=== PATIENT | male | born 1965 | race Caucasian/White ===

== ENCOUNTER 2019-04-21 15:13 | Outpatient (CLI) | payer BC ==
[~2019-04-21] VITALS: Ht 180.3 cm; Wt 75.9 kg
[~2019-04-21 15:13] MED LIST: AMLO5TAB9 PO; OLME20TA24 PO
== END 2019-04-21 16:11 | disposition home or self-care (01) ==
LOC: PREOP 15:13
PROVIDERS: ATTEND Surgery
DX: Z01.818 Encounter for other preprocedural examination (principal)

== ENCOUNTER 2019-04-27 09:50 | Day surgery (SDC) | payer BC ==
[~2019-04-27] VITALS: Ht 180.3 cm; Wt 75.9 kg
[2019-04-27] VITALS (8 sets, daily range): BP systolic 119–154; BP diastolic 66–89
[2019-04-27] MEDS ORDERED: LACTATED RINGERS 1,000 ML IV ONE (09:51)
[2019-04-27] MEDS ORDERED: LACTATED RINGERS 1,000 ML IV PRN (10:15)
[2019-04-27] MEDS ORDERED: PROPOFOL INJECTION 50 ML IV ONE (10:18)
[2019-04-27] MEDS ORDERED: MIDAZOLAM 2 MG/2 ML (VERSED) VIAL ONE (10:19)
--- NOTE | 2019-04-27 11:25 | Progress Note-Pre Operative ---
Pre-Operative Progress Note H&P Reviewed The H&P was reviewed, patient examined and no changes noted. Date Seen by Provider: Apr 27, 2019 Time Seen by Provider: 11: Date H&P Reviewed: Apr 27, 2019 Time H&P Reviewed: 11:25 Pre-Operative Diagnosis: screening colonoscopy SENAIT SIEGEL DO Apr 27, 2019 11:25
--- NOTE | 2019-04-27 11:45 | Progress Note-Post Operative ---
Post-Operative Progess Note Surgeon (s)/Primary Teacher (s) Surgeon SENAIT SIEGEL DO Primary Teacher: NA Pre-Operative Diagnosis screening colonoscopy Post-Operative Diagnosis Diverticulosis Procedure & Operative Findings Date of Procedure 04/27/19 Procedure Performed/Findings Diverticulosis Anesthesia Type per DYER ASSISTANT Estimated Blood Loss Estimated blood loss (mL): None Specimens/Packing Specimens Removed None SENAIT SIEGEL DO Apr 27, 2019 11:45
--- NOTE | 2019-04-27 11:47 | Discharge Inst-Simple/Standard ---
Discharge Inst-Standard Patient Instructions/Follow Up Plan of Care/Instructions/FU: Follow up in ten years for repeat colonoscopy, unless family history of colon cancer or personal history of polyps, which would be five years. Any issues before that be seen at that time. Activity as Tolerated: Yes Discharge Diet: Regular Diet (High Fiber) SENAIT SIEGEL DO Apr 27, 2019 11:47
--- NOTE | 2019-04-27 12:24 | Anesthesia-General Post-Op ---
MAC Patient Condition Mental Status/LOC: Same as Preop Cardiovascular: Satisfactory Nausea/Vomiting: Absent Respiratory: Satisfactory Pain: Controlled Complications: Absent Post Op Complications Complications None Follow Up Care/Instructions Patient Instructions None needed. Anesthesiology Discharge Order Discharge Order Patient is doing well, no complaints, stable vital signs, no apparent adverse anesthesia problems. No complications reported per nursing. ZANE LOTT CRNA Apr 27, 2019 12:06
--- NOTE | 2019-04-27 15:28 | OPERATIVE REPORT ---
DATE OF SERVICE: 04/27/2019 PREOPERATIVE DIAGNOSIS: Screening colonoscopy. POSTOPERATIVE DIAGNOSIS: Diverticulosis. PROCEDURE: Colonoscopy. SURGEON: Senait Gonzalez DO ANESTHESIA: Per SHIP LOADER. ESTIMATED BLOOD LOSS: None. COMPLICATIONS: None. INDICATIONS: The patient is a 54-year-old male with a need for screening colonoscopy. He understands risks and benefits of procedure and wished to proceed with procedure. Consent was signed in the chart. DESCRIPTION OF PROCEDURE: The patient was taken to the endoscopy suite, placed in left lateral recumbent position. Timeout was performed. Digital rectal exam was performed. There were no palpable polyps, masses or ulcerations. Scope was inserted in the rectum and advanced all the way to cecum with minimal difficulty. Prep was adequate. Scope was then slowly retracted back. There were no polyps, masses or ulcerations within the cecum, ascending, transverse, descending and sigmoid colon. Throughout the colon, there were minimal to moderate amount of diverticulosis present. Once in the rectum, scope was retroflexed noting no other pathology. Scope was returned to its normal position, slowly withdrawn until completely removed. The patient tolerated procedure well without any complications. He was taken to recovery room in stable condition. RECOMMENDATIONS: The patient will need repeat colonoscopy in 10 years. Any issues before that be seen at that time. We would recommend high fiber diet. Job ID: [id number] DocumentID: [id number] Dictated Date: 04/27/2019 11:45:12 Restaurant Line Cook Date: 04/27/2019 15:26:39 Dictated By: SENAIT GONZALEZ DO
== END 2019-04-27 12:30 | disposition home or self-care (01) ==
LOC: ENDO 09:50
PROVIDERS: ATTEND Surgery
DX: Z12.11 Encounter for screening for malignant neoplasm of colon (principal); K57.30 Diverticulosis of large intestine without perforation or abscess without bleeding; I10 Essential (primary) hypertension; Z79.899 Other long term (current) drug therapy; Z79.02 Long term (current) use of antithrombotics/antiplatelets

== ENCOUNTER 2020-02-13 09:12 | Emergency (ER) | payer BC ==
[~2020-02-13] VITALS: Ht 178 cm; Wt 73.0 kg
[~2020-02-13 09:12] MED LIST changes: +AMLO-250 PO; -AMLO5TAB9 PO
--- NOTE | 2020-02-13 09:36 | ED Upper Extremity ---
General Chief Complaint: Upper Extremity Stated Complaint: L WRIST PAIN Source: patient Exam Limitations: no limitations History of Present Illness Date Seen by Provider: Feb 13, 2020 Time Seen by Provider: 09:23 Initial Comments Patient presents to the ER by private conveyance with chief complaint that yesterday while splitting wood he fell onto outstretched left forearm. He was able to finish his job and secured a elastic bandage around his wrist for compre ssion. He took Tylenol and ibuprofen and woke up this morning with excruciating pain that is controlled with Tylenol and Motrin as well as increased swelling in his left wrist. No loss of sensation or range of motion. No previous injury or surgery to that wrist Allergies and Home Medications Allergies Coded Allergies: No Known Drug Allergies (Verified , 04/27/19) Home Medications Amlodipine Besylate 5 Mg Tablet, 5 MG PO DAILY, (Reported) Hydrocodone/Acetaminophen 1 Each Tablet, 1 EACH PO Q6H PRN for PAIN-BREAKTHROUGH Prescribed by: ASHIA MARTINEZ on 02/13/20 1014 Olmesartan Medoxomil 20 Mg Tablet, 20 MG PO DAILY, (Reported) Patient Home Medication List Home Medication List Reviewed: Yes Review of Systems Constitutional: No chills, No diaphoresis EENTM: No ear discharge, No ear pain Respiratory: No cough, No short of breath Cardiovascular: No chest pain, No palpitations Gastrointestinal: No abdominal pain, No melena Past Vcjmmkc-Xztdyv-Ruhqgg Hx Patient Social History Alcohol Use: Denies Use Recreational Drug Use: No Recent Hopitalizations: No Physical Abuse: No Sexual Abuse: No Mistreated: No Fear: No Seasonal Allergies Seasonal Allergies: No Past Medical History Surgeries: No Respiratory: No Cardiac: Yes Hypertension Neurological: No Genitourinary: No Gastrointestinal: No Musculoskeletal: No Endocrine: No HEENT: No Cancer: No Psychosocial: No Integumentary: No Blood Disorders: No Physical Exam Vital Signs Vital Signs - First Documented 02/13/20 09:20 Temp 35.1 Pulse 78 Resp 16 Pulse Ox 99 O2 Delivery Room Air Capillary Refill : Height, Weight, BMI Height: '" Weight: lbs. oz. kg; 23.34 BMI Method: General Appearance: WD/WN, no apparent distress HEENT: PERRL/EOMI, pharynx normal Neck: full range of motion, normal inspection Cardiovascular: normal peripheral pulses, regular rate, rhythm Respiratory: no respiratory distress, no accessory muscle use Elbow/Forearm: normal inspection, non-tender, no evidence of injury, normal ROM, Left Wrist: Yes normal ROM, Yes pain, Yes soft tissue tenderness, Yes swelling Hand: normal inspection, non-tender, no evidence of injury, normal ROM, Left Neurologic/Tendon: normal sensation, normal motor functions, normal tendon func tions Neurologic/Psychiatric: alert, normal mood/affect, oriented x 3 Skin: normal color, warm/dry Progress/Results/Core Measures Results/Orders My Orders Orders - ASHIA MARTINEZ Wrist, Left, 3 Views Or More (02/13/20 09:32) Vital Signs/I&O 02/13/20 09:20 Temp 35.1 Pulse 78 Resp 16 B/P (MAP) Pulse Ox 99 O2 Delivery Room Air Progress Progress Note : Time: 10:11 Progress Note Karina splint placed and referral made to local orthopedic surgery. Diagnostic Imaging Diagonstic Imaging: Xray Comments NAME: SKYLAR HIGGINS [facility] REC#: [id number] PT STATUS: REG ER : 1965 PHYSICIAN: ASHIA MARTINEZ MD ADMIT DATE: 02/13/20/ER Draft Date of Exam:02/13/20 WRIST, LEFT, 3 VIEWS OR MORE Indication: Left wrist injury with pain and swelling. Comparison: None. Discussion: Three views of the left wrist were obtained. Comminuted nondisplaced intraarticular fracture involving the distal left radius. 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 No dislocation. Mild soft tissue swelling. No foreign body. Impression: 1. Intra-articular nondisplaced comminuted distal left radial fracture. Dictated on workstation # [id number] Dict: 02/13/2046 Trans: 02/13/2049 [facility] [id number] Interpreted by: ISMAEL HASSAN MD Electronically signed by: Reviewed: Reviewed by Me Departure Impression Primary Impression: Fracture of radius Qualified Codes: S52.572A - Other intraarticular fracture of lower end of left radius, initial encounter for closed fracture Disposition: HOME, SELF-CARE Condition: Stable Departure-Patient Inst. Decision time for Depature: 10:10 Referrals: JOSLYN FRIAS DO (PCP/Family) Primary Care Physician ECTOR SMALL MD Patient Instructions: Radius Fracture (DC) Add. Discharge Instructions: Ice applied for 20 minutes every 2 hours for the first 2 days as needed for swelling and pain. Keep the wrist immobilized except to bathe. Tylenol 650 mg every 8 hours as necessary for pain. Ibuprofen 800 mg every 8 hours as necessary for pain. Hydrocodone 1 tablet every 6 hours for severe breakthrough pain keeping you from being functional. It will cause constipation and drowsiness. Follow-up with the orthopedic surgeon early next week by calling tomorrow for an appointment. Elevate the wrist above the level of your heart when not in use. All discharge instructions reviewed with patient and/or family. Voiced u nderstanding. Scripts Hydrocodone/Acetaminophen (Hydrocodone-Acetamin 5-325 mg) 1 Each Tablet 1 EACH PO Q6H PRN for PAIN-BREAKTHROUGH, #10 TAB 0 Refills Prov: ASHIA MARTINEZ 02/13/20 Work/School Note: Work Release Form Date Seen in the Emergency Department: Feb 13, 2020 Return to Work: Feb 14, 2020 Restrictions: Need Release from Doctor Other Restrictions Listed Below: Splint left forearm and no using left wrist until released by physician. Copy Copies To 1: ECTOR SMALL MD, TITUS J Feb 13, 2020 09:36
--- NOTE | 2020-02-13 09:49 | Diagnostic Imaging Report ---
Indication: Left wrist injury with pain and swelling. Comparison: None. Discussion: Three views of the left wrist were obtained. Comminuted nondisplaced intraarticular fracture involving the distal left radius. 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 No dislocation. Mild soft tissue swelling. No foreign body. Impression: 1. Intra-articular nondisplaced comminuted distal left radial fracture. Dictated by: Dictated on workstation # [id number]
[2020-02-13] MEDS ORDERED: ACHD5005 PO (10:13)
[2020-02-13 10:31] VITALS: BP 121/79
== END 2020-02-13 10:31 | disposition home or self-care (01) ==
LOC: EDUNIT# 09:12 → ER 09:14
DX: S52.572A Other intraarticular fracture of lower end of left radius, initial encounter for closed fracture (principal); I10 Essential (primary) hypertension; W01.0XXA Fall on same level from slipping, tripping and stumbling without subsequent striking against object, initial encounter
CPT/HCPCS: 73110

== ENCOUNTER 2022-05-24 07:54 | Emergency (ER) | payer BC ==
[~2022-05-24] VITALS: Ht 180.3 cm; Wt 72.5 kg
[~2022-05-24 07:54] MED LIST changes: +ACHD5005 PO
--- NOTE | 2022-05-24 08:01 | ED Integumentary General ---
General Stated Complaint: LACERATION UNDER LEFT EYE History of Present Illness Date Seen by Provider: May 24, 2022 Time Seen by Provider: 08:05 Initial Comments 57-year-old male presents with small linear laceration underneath his left eye. Patient reports that around 7 this morning he turned and got a edge of a piece of metal. Patient's laceration approximately 2 cm long. No other injury. He is unsure when his last tetanus was but thinks it was a couple years ago. No other systemic complaints. Allergies and Home Medications Allergies Coded Allergies: No Known Drug Allergies (Verified , 04/27/19) Patient Home Medication List Home Medication List Reviewed: Yes Amlodipine Besylate (Amlodipine Besylate) 5 Mg Tablet, 5 MG PO DAILY, (Reported) Entered as Reported by: HILARY RAO on 04/21/19 1510 Hydrocodone/Acetaminophen (Hydrocodone-Acetamin 5-325 mg) 1 Each Tablet, 1 EACH PO Q6H PRN for PAIN-BREAKTHROUGH Prescribed by: ASHIA MARTINEZ on 02/13/20 1014 Olmesartan Medoxomil (Olmesartan Medoxomil) 20 Mg Tablet, 20 MG PO DAILY, (Reported) Entered as Reported by: HILARY RAO on 04/21/19 1510 Review of Systems Review of Systems Constitutional: no symptoms reported EENTM: see HPI Respiratory: no symptoms reported Cardiovascular: no symptoms reported Gastrointestinal: no symptoms reported Genitourinary: no symptoms reported Musculoskeletal: no symptoms reported Skin: see HPI Past [place]-Vbeuaq-Examot Hx Seasonal Allergies Seasonal Allergies: No Past Medical History Surgeries: No Respiratory: No Cardiac: Yes Hypertension Neurological: No Genitourinary: No Gastrointestinal: No Musculoskeletal: No Endocrine: No HEENT: No Cancer: No Psychosocial: No Integumentary: No Blood Disorders: No Physical Exam Vital Signs Vital Signs - First Documented 05/24/22 08:05 Temp 36.4 Pulse 75 Resp 11 B/P (MAP) 142/70 (94) Pulse Ox 97 O2 Delivery Room Air Capillary Refill : General Appearance: WD/WN, no apparent distress Neck: full range of motion Cardiovascular: normal peripheral pulses, regular rate, rhythm Respiratory: lungs clear, normal breath sounds Skin Problem Location: face Skin Problem Character: linear, other (2 cm laceration) Procedures/Interventions Wound Location: Face Other Wound Location Below left eye Wound's Depth, Shape: superficial, linear Wound Explored: clean Other Closure Supply: Wound Adhesive Patient tolerated well with no immediate complication Progress/Results/Core Measures Results/Orders Vital Signs/I&O 05/24/22 08:05 Temp 36.4 Pulse 75 Resp 11 B/P (MAP) 142/70 (94) Pulse Ox 97 O2 Delivery Room Air Departure Impression Primary Impression: Laceration of face without complication Qualified Codes: S01.81XA - Laceration without foreign body of other part of head, initial encounter Disposition: HOME, SELF-CARE Condition: Stable Departure-Patient Inst. Referrals: JOSLYN FRIAS DO (PCP/Family) Primary Care Physician Patient Instructions: Laceration Repair With Glue ED Add. Discharge Instructions: Please allow glue to come off on its own. Keep clean with warm soapy water CEASAR SMITH DO May 24, 2022 08:01
[2022-05-24 08:05] VITALS: BP 142/70
[2022-05-24] MEDS ORDERED: TETANUS,DIPTH,PERTUSS P/F (BOOSTRIX) 0.5 ML VIAL IM ONE (08:15)
== END 2022-05-24 08:41 | disposition home or self-care (01) ==
LOC: EDUNIT# 07:54 → ER 07:57
DX: S01.112A Laceration without foreign body of left eyelid and periocular area, initial encounter (principal); Z23 Encounter for immunization; W26.8XXA Contact with other sharp object(s), not elsewhere classified, initial encounter
CPT/HCPCS: 12011; 90715

== ENCOUNTER 2022-12-28 13:29 | Emergency (ER) | payer BC ==
[~2022-12-28] VITALS: Ht 177 cm; Wt 72.0 kg
[2022-12-28 13:41] VITALS: BP 128/74
--- NOTE | 2022-12-28 13:48 | ED Upper Extremity ---
General Chief Complaint: Laceration Stated Complaint: LAC RIGHT ARM Source: patient Exam Limitations: no limitations History of Present Illness Date Seen by Provider: Dec 28, 2022 Time Seen by Provider: 13:40 Initial Comments 57-year-old male presents the ER into his right wrist. States that he cut it on a piece of metal. He also has a abrasion to his right forearm. Last tetanus was 9 months ago. Allergies and Home Medications Allergies Coded Allergies: No Known Drug Allergies (Verified , 04/27/19) Patient Home Medication List Home Medication List Reviewed: Yes Amlodipine Besylate (Amlodipine Besylate) 5 Mg Tablet, 5 MG PO DAILY, (Reported) Entered as Reported by: HILARY RAO on 04/21/19 1510 Hydrocodone/Acetaminophen (Hydrocodone-Acetamin 5-325 mg) 1 Each Tablet, 1 EACH PO Q6H PRN for PAIN-BREAKTHROUGH Prescribed by: ASHIA MARTINEZ on 02/13/20 1014 Olmesartan Medoxomil (Olmesartan Medoxomil) 20 Mg Tablet, 20 MG PO DAILY, (Reported) Entered as Reported by: HILARY RAO on 04/21/19 1510 Review of Systems Constitutional: see HPI Past Ujlzfom-Gnjevg-Ruamsg Hx Seasonal Allergies Seasonal Allergies: No Past Medical History Surgeries: No Respiratory: No Cardiac: Yes Hypertension Neurological: No Genitourinary: No Gastrointestinal: No Musculoskeletal: No Endocrine: No HEENT: No Cancer: No Psychosocial: No Integumentary: No Blood Disorders: No Physical Exam Vital Signs Vital Signs - First Documented 12/28/22 13:41 Temp 36.8 Pulse 77 Resp 20 B/P (MAP) 128/74 (92) Pulse Ox 97 O2 Delivery Room Air Capillary Refill : Height, Weight, BMI Height: '" Weight: lbs. oz. kg; 22.00 BMI Method: General Appearance: WD/WN, no apparent distress Neck: supple, normal inspection Cardiovascular: regular rate, rhythm Respiratory: lungs clear, normal breath sounds, no respiratory distress, no accessory muscle use Wrist: Yes abrasions (And laceration) Neurologic/Psychiatric: alert, normal mood/affect Skin: normal color, warm/dry Procedures/Interventions Wound Location: Upper Extremities Other Wound Location Right wrist Wound Length (cm): 3.5 Wound's Depth, Shape: flap Wound Explored: clean Irrigated w/ Saline (ccs): 500 Anesthesia: 1% Lidocaine Volume Anesthetic (ccs): 2 Suture: Ethlion Suture Size: 4-0 Number of Sutures: 9 Progress/Results/Core Measures Results/Orders Vital Signs/I&O 12/28/22 13:41 Temp 36.8 Pulse 77 Resp 20 B/P (MAP) 128/74 (92) Pulse Ox 97 O2 Delivery Room Air Progress Progress Note : Progress Note Patient seen and evaluated, resting comfortably in bed, no acute distress. Laceration to right wrist repaired, see procedure note. He is up-to-date on his tetanus. Discharge instructions and return precautions provided. Departure Impression Primary Impression: Laceration of wrist Disposition: HOME, SELF-CARE Condition: Stable Departure-Patient Inst. Decision time for Depature: 14:14 Referrals: JOSLYN FRIAS DO (PCP/Family) Primary Care Physician Patient Instructions: Laceration Repair With Stitches ED Add. Discharge Instructions: Keep the wound clean and dry. You should apply a covering to the laceration if you are going to be in a dirty environment. You may apply Neosporin to the wound twice a day. You may wash the wound, let water and soap run over it, do not scrub, do not soak. Return in 7-10 days to have the sutures removed. Return for signs of infection including redness, swelling, discolored odorous drainage, or any other new, concerning, or worsening symptoms. All discharge instructions reviewed with patient and/or family. Voiced understanding. FRANCHESCA JACKSON APRN Dec 28, 2022 13:48
== END 2022-12-28 14:20 | disposition home or self-care (01) ==
LOC: EDUNIT# 13:29 → ER 13:31
DX: S61.511A Laceration without foreign body of right wrist, initial encounter (principal); W26.8XXA Contact with other sharp object(s), not elsewhere classified, initial encounter
CPT/HCPCS: 12002

== ENCOUNTER 2023-01-07 06:02 | Emergency (ER) | payer BC ==
[~2023-01-07] VITALS: Ht 177.8 cm; Wt 72.6 kg
[2023-01-07 06:10] VITALS: BP 155/91
--- NOTE | 2023-01-07 07:00 | ED Suture Removal/Wound Check ---
Suture/Wound Re-check Suture Removal/Wound Recheck : Suture Removal/Wound Recheck: Sutures removed by MD Real Wound appeared to have during the healing process and a thick scab formed embedding the sutures. The wound and surrounding skin was cleaned with alcohol. Sutures were picked out of the dried scab and carefully removed using suture scissors, forceps, 18-gauge hypodermic needle, and scalpel. There was some disruption of the scab. Quarter inch Steri-Strips with Mastisol were applied over the wound to help ease tension for a few more days while it cont inues to heal. There were no signs of infection. There is no blanching erythema, unusual tenderness, unusual swelling, or purulent drainage. See discharge instructions for further discussion. All sutures were accounted for. Dressings were provided for the patient. General Appearance: WD/WN, no apparent distress Neuro/Tendon: normal sensation Skin Exam: normal color, warm/dry Physical Exam Vital Signs Vital Signs - First Documented 01/07/23 06:10 Temp 36.7 Pulse 63 Resp 18 B/P (MAP) 155/91 Pulse Ox 97 O2 Delivery Room Air Capillary Refill : General Appearance: no apparent distress Skin: other (Wide scab on the ulnar aspect of the right wrist with embedded sutures. No drainage or inflammatory changes to suggest infection.) Departure Impression Primary Impression: Laceration of wrist Qualified Codes: S61.511D - Laceration without foreign body of right wrist, subsequent encounter Additional Impression: Visit for suture removal Disposition: 01 HOME, SELF-CARE Condition: Stable Departure-Patient Inst. Decision time for Depature: 06:57 Referrals: JOSLYN FRIAS DO (PCP) Primary Care Physician Patient Instructions: SUTURE REMOVAL-UNCOMPLICATED, Laceration Repair With Stitches (DC) Add. Discharge Instructions: Keep the wound clean and dry except for normal handwashing and showering. Do not submerge for another week. Keep it covered when active or in dirty environments for at least another 3 days and until a firm scab has formed again. Monitor for signs of infection such as increasing redness, increasing swelling, increasing pain, heat, fever, or puslike drainage. Return to care if you notice any of the symptoms. Allow the Steri-Strips to slough off naturally. Do not attempt to peel them away as this may disrupt the wound and open it. You may trim loose edges off of the Steri-Strips with the scissors provided or fingernail clippers. Adhesives, lotions, alcohols, or any oily substances will loosen the Steri-Strips. Avoid contacting the Steri-Strips with any of these substances. All discharge instructions reviewed with patient and/or family. Voiced understanding. GENA ELLIOTT MD Jan 07, 2023 07:00
== END 2023-01-07 07:05 | disposition home or self-care (01) ==
LOC: EDUNIT# 06:02 → ER 06:05
DX: S61.511D Laceration without foreign body of right wrist, subsequent encounter (principal); X58.XXXD Exposure to other specified factors, subsequent encounter